=== PATIENT | female | born 1955 | race Caucasian/White ===

== ENCOUNTER 2017-03-12 14:21 | Observation (INO) | payer BC ==
[~2017-03-12] VITALS: Ht 157.5 cm; Wt 79.0 kg
== END 2017-03-13 15:00 | disposition home or self-care (01) ==
LOC: ER 14:21 → MED 17:50
PROVIDERS: ADMIT Internal Medicine
DX: K57.32 Diverticulitis of large intestine without perforation or abscess without bleeding (principal); E87.6 Hypokalemia; I10 Essential (primary) hypertension; Z88.5 Allergy status to narcotic agent; Z88.8 Allergy status to other drugs, medicaments and biological substances; Z79.899 Other long term (current) drug therapy; Z90.49 Acquired absence of other specified parts of digestive tract
CPT/HCPCS: 36415; 96361; 96365; 96366; 96375; 96376; G0378; J0696; Q9967